=== PATIENT | female | born 1960 | race Caucasian/White ===

== ENCOUNTER → 2018-07-01 | Outpatient (CLI) | payer OTHER ==
--- NOTE | 2018-07-02 10:15 | ECHOF ---
Referral Reason:R53.83 fatigue MEASUREMENTS -------- HEIGHT: 152.4 cm WEIGHT: 83.5 kg BP: 164/71 RVIDd: 2.5 cm (< 3.3) IVSd: 1.3 cm (0.6 - 1.1) LVIDd: 4.3 cm (3.9 - 5.3) LVPWd: 1.3 cm (0.6 - 1.1) IVSs: 1.6 cm LVIDs: 3.4 cm LVPWs: 1.6 cm LA Diam: 3.4 cm (2.7 - 3.8) LAESV Index (A-L): 22.77 ml/m Ao Diam: 3.3 cm (2.0 - 3.7) MV EXCURSION: 14.230 mm (> 18.000) MV EF SLOPE: 17 mm/s (70 - 150) EPSS: 0.8 cm MV E Yao: 0.77 m/s MV DecT: 232 ms MV A Yao: 1.03 m/s MV E/A Ratio: 0.75 AV maxP.52 mmHg AV meanP.45 mmHg AR PHT: 698 ms FINDINGS -------- Sinus rhythm. This was a technically adequate study. The left ventricular size is normal. There is mild concentric left ventricular hypertrophy. Overa ll left ventricular systolic function is normal with, an EF between 55 - 60 %. The right ventricle is normal in size. Normal LA size by volume 22+/-6 ml/m2. The right atrium is normal in size. There is moderate aortic valve sclerosis. There is mild aortic regurgitation. There is mild aorti c stenosis present. Peak/mean gradient across the Aortic Valve is 19.52mmHg / 10.45mmHg. Can't ex clude possible Bicuspid Aov. The mitral valve is normal. The tricuspid valve appears structurally normal. The pulmonic valve was not well visualized. The aortic root size is normal. Normal inferior vena cava with normal inspiratory collapse consistent with estimated right atrial pre ssure of 5 mmHg. There is no pericardial effusion. CONCLUSIONS -------- 1. Sinus rhythm. 2. This was a technically adequate study. 3. The left ventricular size is normal. 4. There is mild concentric left ventricular hypertrophy. 5. Overall left ventricular systolic function is normal with, an EF between 55 - 60 %. 6. The right ventricle is normal in size. 7. Normal LA size by volume 22+/-6 ml/m2. 8. The right atrium is normal in size. 9. There is moderate aortic valve sclerosis. 10. There is mild aortic regurgitation. 11. There is mild aortic stenosis present. 12. Peak/mean gradient across the Aortic Valve is 19.52mmHg / 10.45mmHg. 13. Can't exclude possible Bicuspid Aov. 14. The mitral valve is normal. 15. The tricuspid valve appears structurally normal. 16. The pulmonic valve was not well visualized. 17. The aortic root size is normal. 18. Normal inferior vena cava with normal inspiratory collapse consistent with estimated right atrial pressure of 5 mmHg. 19. There is no pericardial effusion. GUARDIAN AD LITEM: Monika Castaneda RDCS
== END | disposition home or self-care (01) ==
LOC: RADECHMAIN 13:56
DX: I08.2 Rheumatic disorders of both aortic and tricuspid valves (principal); R53.83 Other fatigue
CPT/HCPCS: 93306

== ENCOUNTER → 2020-09-12 | Outpatient (CLI) | payer OTHER ==
--- NOTE | 2020-09-17 11:39 | MM ---
Reason for exam: screening (asymptomatic). Last mammogram was performed 10 years and 9 months ago. History: Patient is postmenopausal and has history of other cancer at age 38. Family history of breast cancer in sister at age 57, breast cancer in sister at age 55, and premenopausal breast cancer in grandmother at age 40. Benign core biopsy of the right breast. Physical Findings: A clinical breast exam by your physician is recommended on an annual basis and results should be correlated with mammographic findings. MG 3D Screening Mammo W/Cad Bilateral CC and MLO view(s) were taken. There are scattered fibroglandular densities. No significant changes when compared with prior studies. ASSESSMENT: Benign, BI-RAD 2 RECOMMENDATION: Routine screening mammogram of both breasts in 1 year.
== END | disposition home or self-care (01) ==
LOC: RADMAMWWP 15:38
PROVIDERS: ATTEND Family Medicine
DX: Z12.31 Encounter for screening mammogram for malignant neoplasm of breast (principal); Z80.3 Family history of malignant neoplasm of breast; Z91.030 Bee allergy status; Z88.1 Allergy status to other antibiotic agents
CPT/HCPCS: 77063; 77067

== ENCOUNTER 2020-11-19 18:55 | Emergency (ER) | payer OTHER ==
[2020-11-19 19:10] VITALS: RESP 18
[2020-11-19] MEDS ORDERED: ACETAMINOPHEN TAB 500 MG TAB PO STA (19:11)
[2020-11-19] MEDS ORDERED: BAMLANIVIMAB 700 MG in SODIUM CHLORIDE 0.9% 50 ML IVPB ONE (20:00)
--- NOTE | 2020-11-19 20:01 | XR ---
EXAMINATION TYPE: XR chest 2V DATE OF EXAM: 11/19/2020 COMPARISON: None. HISTORY: Cough. TECHNIQUE: Frontal and lateral views of the chest are obtained. FINDINGS: There is hyperexpansion of the lungs which is likely related COPD. Cardiomegaly is noted. There is bilateral pleural thickening. There is haziness of the lung bases particularly on the right as well as haziness in the right perihi lar distribution. The findings are nonspecific. Pneumonia is in the differential. IMPRESSION: Hyperexpansion of lungs with pleural thickening worse on the right than on the left likely related to chronic lung disease. Haziness in the right perihilar and right lung base may be related to pneumonia. Please correlate cli nically. IMPRESSION: No acute cardiopulmonary process.
--- NOTE | 2020-11-19 20:15 | ED ---
General Adult HPI - General Chief complaint: ENT Stated complaint: COVID Time Seen by Provider: 11/19/20 19:02 Source: patient, RN notes reviewed Mode of arrival: EMS Limitations: no limitations - History of Present Illness Initial comments: This a 60-year-old female presents emergency Department from outpatient urgent care chief complaint of covid. Patient states symptoms started 2 days ago. Patient states she has mild nasal congestion minimal cough. Patient states that she feels nearly completely normal. Patient states that she was sent here and states that she was only evaluated because her family wanted her to be. Patient denies any significant shortness of breath no noted fever at home with was febrile here. Patient denies any leg pain abdominal pain no nausea vomiting diarrhea or constipation other complaints. - Related Data Home Medications Medication Instructions Recorded Confirmed Levothyroxine Sodium [Synthroid] 135 mcg PO DAILY 03/30/16 04/24/20 Atorvastatin Calcium [Lipitor] 80 mg PO HS 04/24/20 04/24/20 Cholecalciferol (Vitamin D3) 50 mcg PO DAILY 04/24/20 04/24/20 [Decara] Cyclobenzaprine [Flexeril] 10 mg PO BID 04/24/20 04/24/20 Multivitamins, Thera [Multivitamin 1 tab PO DAILY 04/24/20 04/24/20 (formulary)] Allergies Allergy/AdvReac Type Severity Reaction Status Date / Time bee venom protein (honey bee) Allergy Unknown Verified 11/19/20 19:09 erythromycin base Allergy Rash/Hives Verified 11/19/20 19:09 Review of Systems ROS Statement: Those systems with pertinent positive or pertinent negative responses have been documented in the HPI. ROS Other: All systems not noted in ROS Statement are negative. Past Medical History Past Medical History: Cancer, Diabetes Mellitus, Hyperlipidemia, Hypertension, Thyroid Disorder History of Any Multi-Drug Resistant Organisms: None Reported Past Surgical History: Section, Tonsillectomy Additional Past Surgical History / Comment(s): thyroidectomy Past Anesthesia/Blood Transfusion Reactions: No Reported Reaction Past Psychological History: No Psychological Hx Reported Smoking Status: Former smoker Past Alcohol Use History: None Reported Past Drug Use History: None Reported General Exam Limitations: no limitations General appearance: alert, in no apparent distress Head exam: Present: atraumatic, normocephalic, normal inspection Eye exam: Present: normal appearance, PERRL, EOMI. Absent: scleral icterus, conjunctival injection, periorbital swelling ENT exam: Present: normal exam, normal oropharynx, mucous membranes moist Neck exam: Present: normal inspection, full ROM. Absent: tenderness, meningismus, lymphadenopathy Respiratory exam: Present: normal lung sounds bilaterally. Absent: respiratory distress, wheezes, rales, rhonchi, stridor Cardiovascular Exam: Present: regular rate, normal rhythm, normal heart sounds. Absent: systolic murmur, diastolic murmur, rubs, gallop, clicks GI/Abdominal exam: Present: soft, normal bowel sounds. Absent: distended, tenderness, guarding, rebound, rigid Back exam: Present: normal inspection Neurological exam: Present: alert, oriented X3, CN II-XII intact, reflexes normal. Absent: motor sensory deficit Skin exam: Present: warm, dry, intact, normal color. Absent: rash Course Vital Signs 11/19/20 19:03 Temperature 101.9 F H Pulse Rate 64 Respiratory 18 Rate Blood Pressure 181/83 O2 Sat by Pulse 94 L Oximetry Medical Decision Making - Medical Decision Making X-ray reviewed possible early signs of pneumonia patient pulse ox is 96 on room air room she has no point shortness breath. Patient will receive monoclonal antibody and will be discharged in stable condition. Patient was given return parameters. Disposition Clinical Impression: COVID-19 Disposition: HOME SELF-CARE Condition: Stable Instructions (If sedation given, give patient instructions): Coronavirus Disease 2019 (COVID-19) Additional Instructions: Please return to the Emergency Department if symptoms worsen or any other concerns. Is patient prescribed a controlled substance at d/c from ED?: No Referrals: [facility],Clinic [Primary Care Provider] - 1-2 days Time of Disposition: 20:15
[2020-11-19 21:25] VITALS: BP 135/79; PULSE 73; TEMP 98
== END 2020-11-19 21:26 | disposition home or self-care (01) ==
LOC: EC 18:55
DX: U07.1 COVID-19 (principal); E11.9 Type 2 diabetes mellitus without complications; E78.5 Hyperlipidemia, unspecified; I10 Essential (primary) hypertension; Z87.891 Personal history of nicotine dependence
CPT/HCPCS: 71046; 99283; Q0239

== ENCOUNTER → 2022-04-09 | Outpatient (CLI) | payer OTHER ==
--- NOTE | 2022-04-10 14:11 | MM ---
Reason for Exam: Screening (asymptomatic). Last mammogram was performed 1 year(s) and 7 month(s) ago. Patient History: Menarche at age 11. First Full-Term at age 19. Postmenopausal. Other cancer, age 38. Benign Core Biopsy on the right side. Maternal grandmother had breast cancer, age 40. Sister had breast cancer, age 57. Sister had breast cancer, age 55. Risk Values: Ruth 5 year model risk: 7.5%. NCI Lifetime model risk: 28.3%. Prior Study Comparison: 10/02/2005 Bilateral Screening Mammogram, [facility]. 12/19/2009 Bilateral Screening Mammogram, [facility]. 09/12/2020 Bilateral Screening Mammogram, [facility]. Tissue Density: There are scattered fibroglandular densities. Findings: Analyzed By CAD. Benign calcifications are present bilaterally. Vascular calcifications present. No significant interval changes are evident No suspicious groups of microcalcifications, spiculated or lobular masses, architectural distortion or other secondary signs of malignancy are mammographically apparent. Overall Assessment: Benign, BI-RAD 2 Management: Screening Mammogram of both breasts in 1 year. A negative mammogram report should not preclude additional follow up of suspicious palpable abnormalities. Patient should continue monthly self breast exam. A clinical breast exam by your physician is recommended on an annual basis and results should be correlated with mammographic findings. Electronically signed and approved by: Pillo Joiner D.O. Radiologis
== END | disposition home or self-care (01) ==
LOC: RADMAMWWP 11:40
DX: Z12.31 Encounter for screening mammogram for malignant neoplasm of breast (principal); Z78.0 Asymptomatic menopausal state; Z80.3 Family history of malignant neoplasm of breast
CPT/HCPCS: 77063; 77067

== ENCOUNTER → 2023-07-22 | Outpatient (CLI) | payer OTHER ==
--- NOTE | 2023-07-23 09:47 | MM ---
Reason for Exam: Screening (asymptomatic). Last mammogram was performed 1 year(s) and 4 month(s) ago. Patient History: Menarche at age 11. First Full-Term at age 19. Postmenopausal. Other cancer, age 38. Benign Core Biopsy on the right side. Maternal grandmother had breast cancer, age 40. Maternal cousin had breast cancer, age 60. Sister had breast cancer, age 57. Sister had breast cancer, age 55. Risk Values: Ruth 5 year model risk: 7.9%. NCI Lifetime model risk: 26.7%. Prior Study Comparison: 12/19/2009 Bilateral Screening Mammogram, [facility]. 09/12/2020 Bilateral Screening Mammogram, [facility]. 04/09/2022 Bilateral MG 3D screening mammo w/cad, [facility]. Tissue Density: The breast tissue is heterogeneously dense. This may lower the sensitivity of mammography. Findings: Analyzed By CAD. Pattern appears symmetrical and stable. Benign calcification is present bilaterally. Benign vascular calcification is evident. No suspicious groups of microcalcifications, spiculated or lobular masses, architectural distortion or other secondary signs of malignancy are mammographically apparent. Overall Assessment: Benign, BI-RAD 2 Management: Screening Mammogram of both breasts in 1 year. A negative mammogram report should not preclude additional follow up of suspicious palpable abnormalities. Patient should continue monthly self breast exam. A clinical breast exam by your physician is recommended on an annual basis and results should be correlated with mammographic findings. Electronically signed and approved by: Pillo Joiner D.O. Radiologis
== END | disposition home or self-care (01) ==
LOC: RADMAMWWP 11:08
PROVIDERS: ATTEND Family Medicine
DX: Z12.31 Encounter for screening mammogram for malignant neoplasm of breast (principal); Z78.0 Asymptomatic menopausal state; Z80.3 Family history of malignant neoplasm of breast
CPT/HCPCS: 77063; 77067

== ENCOUNTER → 2024-07-26 | Outpatient (CLI) | payer OTHER ==
--- NOTE | 2024-07-30 16:09 | MM ---
Reason for Exam: Screening (asymptomatic). Last screening mammogram was performed 12 month(s) ago. Patient History: Menarche at age 11. First Full-Term at age 19. Postmenopausal. Other cancer, age 38. Benign Core Biopsy on the right side. Maternal grandmother had breast cancer, age 40. Maternal cousin had breast cancer, age 60. Paternal cousin had breast cancer, age 67. Sister had breast cancer, age 57. Sister had breast cancer, age 55. Risk Values: Ruth 5 year model risk: 8.0%. NCI Lifetime model risk: 25.9%. Prior Study Comparison: 09/12/2020 Bilateral Screening Mammogram, [facility]. 04/09/2022 Bilateral MG 3D screening mammo w/cad, [facility]. 07/22/2023 Bilateral MG 3D screening mammo w/cad, [facility]. Tissue Density: The breasts are heterogeneously dense, which may obscure small masses. Findings: Analyzed By CAD. The pattern is symmetrical. Benign vascular calcifications present bilaterally. There are scattered benign-appearing round calcifications present. No suspicious groups of microcalcifications, spiculated or lobular masses, architectural distortion or other secondary signs of malignancy are mammographically apparent. Overall Assessment: Benign, BI-RAD 2 Management: Screening Mammogram of both breasts in 1 year. A negative mammogram report should not preclude additional follow up of suspicious palpable abnormalities. Patient should continue monthly self breast exam. A clinical breast exam by your physician is recommended on an annual basis and results should be correlated with mammographic findings. Note on Ruth scores and lifetime risk: 1. A Ruth score greater than 3% is considered moderate risk. If this is the case, consider specialist referral to assess eligibility for a risk reducing agent. 2. If overall lifetime risk for the development of breast cancer is 20% or higher, the patient may qualify for future screening with alternating mammogram and breast MRI. [facility], , 07/30/2024 4:07 PM. Electronically signed and approved by: Pillo Joiner D.O. Radiologis
== END | disposition home or self-care (01) ==
LOC: RADMAMWWP 10:47
PROVIDERS: ATTEND Family Medicine
DX: Z12.31 Encounter for screening mammogram for malignant neoplasm of breast (principal); R92.333 Mammographic heterogeneous density, bilateral breasts; Z78.0 Asymptomatic menopausal state; Z80.3 Family history of malignant neoplasm of breast
CPT/HCPCS: 77063; 77067